=== PATIENT | female | born 1945 | race Caucasian/White ===

== ENCOUNTER 2020-05-02 11:20 | Observation (INO) ==
[2020-05-02 11:59] LABS: VBG HCO3 40 mEq/L (21-27); VBG PCO2 91 mmHg (41-51); VBG PH 7.26 pH Units (7.32-7.42); VBG PO2 42 mmHg (25-50)
[2020-05-02 12:17] LABS: Bilirubin,Urine Negative (Negative); Blood,Urine Negative (Negative); Clarity,Urine Clear (Clear); Color,Urine Light-Yellow (Yellow); Glucose,Urine (UA) Normal (Normal); Ketones,Urine Negative (Negative); Leukocyte Esterase,Urine Negative (Negative); Nitrite,Urine Negative (Negative); PH,Urine 6.5 pH Units (5.0-8.0); Protein,Urine Trace mg/dL (Neg-Trace); Specific Gravity,Urine 1.014 (1.010-1.025); Urobilinogen,Urine Normal (Normal)
[2020-05-02 12:24] LABS: Alanine Aminotransferase 7 Units/L (7-52); Albumin 3.7 g/dL (3.5-5.7); Albumin/Globulin Ratio 0.9 (1.1-2.2); Alkaline Phosphatase 82 Units/L (34-104); Aspartate Amino Transferase 11 Units/L (13-39); BUN/Creatinine Ratio 20 (6-26); Bilirubin,Indirect 0.3 mg/dL (0.0-1.0); Bilirubin,Total 0.3 mg/dL (0.3-1.0); Blood Urea Nitrogen 10 mg/dL (8-23); Calcium 9.2 mg/dL (8.6-10.3); Carbon Dioxide 39 mEq/L (23-29); Chloride 100 mEq/L (98-107); Ethanol < 10 mg/dL (Less than 10); Globulin 4.2 g/dL (2.4-3.5); Glucose 82 mg/dL (70-105); Osmolality,Calculated 294 (280-300); Potassium 4.4 mEq/L (3.5-5.1); Sodium 143 mEq/L (136-145); Total Protein 7.9 g/dL (6.4-8.9); Troponin I < 0.03 ng/mL (< 0.04); eGFR For African Americans > 60 (> 60); eGFR For Non-African Americans > 60 (> 60)
[2020-05-02] MEDS ORDERED: *HR* LORazepam 2 MG/ML VIAL IVP ONE (12:24)
[2020-05-02 12:33] LABS: INR 1.1; Prothrombin Time 12.6 Seconds (9.4-12.1)
[2020-05-02 12:36] LABS: Activated Partial Thrombo Time 28.5 Seconds (26.0-36.0)
[2020-05-02 12:38] LABS: Hemoglobin 10.5 g/dL (11.5-15.4); Mean Corpuscular HGB Conc 28.4 g/dL (31.6-35.5); Mean Corpuscular Hemoglobin 27.8 pg (28.0-33.3); Mean Corpuscular Volume 97.9 fL (83.0-100.0); Mean Platelet Volume 9.2 fL (9.4-12.4); Monocytes # 0.8 K/mcL (0.0-1.3); Platelet Count 316 K/mcL (140-400); Red Blood Count 3.78 M/mcL (3.82-4.97); Red Cell Distribution Width 14.8 % (11.5-14.5); White Blood Count 8.2 K/mcL (4.3-11.1)
[2020-05-02] MEDS ORDERED: Ondansetron 4 MG/2 ML VIAL IVP PRN (13:26)
[2020-05-02] MEDS ORDERED: Naloxone 0.4 MG/ML INJ IVP PRN (13:26)
[2020-05-02] MEDS ORDERED: Acetaminophen 325 MG TABLET PO PRN (13:26)
[2020-05-02 13:27] LABS: Eosinophils # 0.2 K/mcL (0.0-0.6); Lymphocytes # 0.7 K/mcL (0.6-4.6); Neutrophils # 6.6 K/mcL (1.6-8.9)
[2020-05-02 13:28] LABS: Platelet Estimate Normal (Normal)
[2020-05-02 13:29] LABS: Hypochromasia Present (Not Present)
[2020-05-02] MEDS: predniSONE 20 MG TABLET PO SCH (15:26)
[2020-05-02 16:10] LABS: VBG HCO3 40 mEq/L (21-27); VBG PCO2 84 mmHg (41-51); VBG PH 7.29 pH Units (7.32-7.42); VBG PO2 37 mmHg (25-50)
[2020-05-02] MEDS: *HR* Heparin 5,000 UNIT/ML VIAL SQ SCH (17:17)
[2020-05-03 04:54] LABS: Basophils % 0.1 %; Immature Granulocytes % 0.3 % (0-4); Red Cell Distribution Width 14.6 % (11.5-14.5)
[2020-05-03 04:56] LABS: Hematocrit 33.1 % (35.3-44.9); Hemoglobin 9.8 g/dL (11.5-15.4); Lymphocytes # 0.6 K/mcL (0.6-4.6); Lymphocytes % 7.7 %; Mean Corpuscular HGB Conc 29.6 g/dL (31.6-35.5); Mean Corpuscular Hemoglobin 27.8 pg (28.0-33.3); Mean Platelet Volume 9.4 fL (9.4-12.4); Monocytes # 0.3 K/mcL (0.0-1.3); Monocytes % 4.1 %; Neutrophils # 6.6 K/mcL (1.6-8.9); Platelet Count 301 K/mcL (140-400); Red Blood Count 3.52 M/mcL (3.82-4.97); Segmented Neutrophils % 87.8 %; White Blood Count 7.5 K/mcL (4.3-11.1)
[2020-05-03 05:14] LABS: BUN/Creatinine Ratio 25 (6-26); Blood Urea Nitrogen 14 mg/dL (8-23); Carbon Dioxide 37 mEq/L (23-29); Chloride 98 mEq/L (98-107); Glucose 127 mg/dL (70-105); Magnesium 2.1 mg/dL (1.6-2.6); Osmolality,Calculated 292 (280-300); Phosphorous 2.5 mg/dL (2.7-4.5); Potassium 4.6 mEq/L (3.5-5.1); Sodium 140 mEq/L (136-145); eGFR For African Americans > 60 (> 60); eGFR For Non-African Americans > 60 (> 60)
[2020-05-03] MEDS: *HR* Heparin 5,000 UNIT/ML VIAL SQ SCH (05:32)
[2020-05-03] MEDS: predniSONE 20 MG TABLET PO SCH (08:32)
[2020-05-03] MEDS ORDERED: amLODIPine 5 MG TABLET PO SCH (09:00)
[2020-05-03] MEDS ORDERED: Cholecalciferol (D-3) 1,000 UNIT (25MCG) TABLET PO SCH (09:00)
[2020-05-03] MEDS ORDERED: Gabapentin 300 MG CAPSULE PO SCH (09:00)
[2020-05-03 11:24] VITALS: BP 105/67
[2020-05-03] MEDS ORDERED: Mirtazapine 15 MG TABLET PO SCH (21:00)
[2020-05-03] MEDS ORDERED: clonazePAM 0.5 MG TABLET PO SCH (21:00)
[2020-05-07] MEDS ORDERED: Cyanocobalamin (B-12) 1,000 MCG TABLET PO SCH (07:33)
== END 2020-05-03 16:16 | disposition home or self-care (01) ==
LOC: EMEROOARM 11:20 → 2ANU 11:20 → SUATTDRO 14:11 → 2ANU 14:45
PROVIDERS: ADMIT Internal Medicine; ATTEND Internal Medicine